=== PATIENT | female | born 1970 | race Caucasian/White ===

== ENCOUNTER 2017-08-18 18:41 | Emergency (ER) | payer BC ==
[~2017-08-18] VITALS: Ht 167.6 cm; Wt 60.2 kg
[~2017-08-18 18:41] MED LIST: AZITTAB PO; DOCU100C31 PO; FERR325T51 PO
[2017-08-18 18:51] VITALS: TEMP 36.8; Ht 167.6 cm; Wt 60.2 kg
[2017-08-18] MEDS ORDERED: SODIUM CHLORIDE 0.9% 1000ML 1,000 ML IV STA (19:04)
[2017-08-18] MEDS ORDERED: KETOROLAC TROMETHAMINE 30 MG/ML VIAL IV STA (19:04)
[2017-08-18] MEDS ORDERED: PROMETHAZINE HCL INJ 12.5 MG in SODIUM CHLORIDE 0.9% 50ML 50 ML IV STA (19:04)
--- NOTE | 2017-08-18 19:11 | EMERGENCY ROOM VISIT NOTE ---
History Report prepared by Mikayla: Camacho Israel Under the Supervision of: Dr. Mo Tran M.D. First contact with patient: 18:54 Chief Complaint: HEADACHE Stated Complaint: MIGRAINE History of Present Illness The patient is a 46 year old female who presents to the Emergency Room with complaints of a constant headache beginning 3 days ago. The patient states that she usually takes Sumatran with relief of her symptoms, but states that it has not helped her for her current symptoms. She notes that her pain feels like one of her typical migraines and is located all along the right side. She reports that she has had migraines for the last few years but has never had to come to the hospital for migraine symptoms. She denies any vision changes, numbness, nausea, vomiting, fever, abdominal pain, ear pain, recent injury, difficulty walking, and chance of . The patient states that she has a history of anemia and does not take any blood thinners. She notes that her mom has a history of cluster headaches. She reports that she is currently taking antibiotics for a sinus infection. She rates her pain as a 9/10. Source of History: patient Onset: 3 days ago Position: head Symptom Intensity: 9/10 Timing: constant Associated Symptoms: No fevers, No nausea, No vomiting, No abdominal pain, No numbness Note: She denies any vision changes and ear pain. She also denies any recent injury, difficulty walking, and chance of . Review of Systems See HPI for pertinent positives & negatives. A total of 10 systems reviewed and were otherwise negative. Past Medical & Surgical Medical Problems: (1) Anemia (2) Bronchitis (3) Sinus infection Old medical records were reviewed. Nurse's notes were reviewed and I agree with. Family History Cluster headache Hypertension Social History Smoking Status: Current Every Day Smoker Alcohol Use: none Marital Status: Housing Status: lives with family Current/Historical Medications Scheduled Amoxicillin (Amoxil), 875 MG PO BID Scheduled PRN Ibuprofen Tab (Advil), 400-600 MG PO Q6H PRN for Headache or Pain Sumatriptan Succinate (Imitrex), 50 MG PO UD PRN for Migraine Allergies Coded Allergies: No Known Allergies (Unverified , 06/26/15) Physical Exam Vital Signs Date Time Temp Pulse Resp B/P (MAP) Pulse Ox O2 Delivery O2 Flow Rate FiO2 08/18/17 23:04 71 18 98/55 96 12/22/17 21:39 74 18 113/75 97 Room Air 08/18/17 21:02 78 18 108/75 96 Room Air 08/18/17 20:07 71 18 111/73 98 Room Air 08/18/17 18:51 36.8 99 20 117/78 99 Room Air Physical Exam General: Non-ill appearing middle age female in no acute distress. HEENT: Normal cephalic atraumatic. Pupils are equal round and reactive to light. Extraocular movements are intact. Oropharynx is pink with moist mucous membranes. No swelling of the mouth lips or tongue. Neck: Supple with a midline trachea. No meningeal signs or stiffness, no JVD or bruits. No Stridor. Chest: Clear to auscultation bilaterally. No wheezes or rhonchi. No increased work of breathing. Heart: regular rate and rhythm. Abdomen: Soft nontender, nondistended without rebound guarding or rigidity. Extremities: No cyanosis clubbing or edema. No calf tenderness or assymetry Spine/Back. Non tender to palpation. No CVA tenderness Skin: Good turgor without rashes. Neurologic exam: Cranial nerves two through 12 are intact. Motor and sensation are intact and symmetrical throughout. Medical Decision & Procedures ER Provider Diagnostic Interpretation: Radiology results as stated below per my review and radiologist interpretation: CT HEAD WITHOUT CONTRAST (CT) FINDINGS: No intra or extra-axial mass lesions are visualized. There is no CT evidence of acute cortical infarction. There is no evidence of midline shift. There is no acute hemorrhage. No calvarial fractures are visualized. There is no evidence of pathologic ventricular dilatation. There is a left maxilla sinus air-fluid level. There is mucosal thickening within the left ethmoid air cells. IMPRESSION: 1. No acute intracranial findings 2. Inflammatory changes within the left maxillary and ethmoid sinuses Electronically signed by: Latrell Preciado M.D. 08/18/2017 10:10 PM Medications Administered Medications (Trade) Dose Ordered Sig/Belkis Route Start Time Stop Time Status Last Admin Dose Admin Ketorolac Tromethamine (Toradol Inj) 30 mg NOW STAT IV 08/18/17 19:04 08/18/17 19:05 DC 08/18/17 19:28 30 MG Promethazine HCl 12.5 mg/Sodium Chloride 50.5 ml @ 204 mls/hr NOW STAT IV 08/18/17 19:04 08/18/17 19:18 DC 08/18/17 19:28 204 MLS/HR Sodium Chloride 1,000 ml @ 999 mls/hr Q1H1M STAT IV 08/18/17 19:04 08/18/17 20:04 DC 08/18/17 19:27 999 MLS/HR Morphine Sulfate (MoRPHine SULFATE INJ) 4 mg NOW STAT IV 08/18/17 20:22 08/18/17 20:25 DC 08/18/17 20:58 4 MG Ondansetron HCl (Zofran Inj) 4 mg NOW STAT IV 08/18/17 20:22 08/18/17 20:25 DC 08/18/17 20:58 4 MG Morphine Sulfate (MoRPHine SULFATE INJ) 2 mg NOW STAT IV 08/18/17 21:45 08/18/17 21:46 DC 08/18/17 21:54 2 MG Oxycodone HCl (Roxicodone Immediate Rel 5MG Home Pack) 1 homepack UD ONCE PO 08/18/17 22:45 08/18/17 22:46 DC 08/18/17 22:59 1 HOMEPACK ED Course 1855: Past medical records reviewed. The patient was evaluated in room C8, and a complete history and physical examination were performed. 1903: Sodium Chloride 1000 ml @ 999 mls/hr IV, Promethazine HCl 12.5mg/Sodium Chloride 50.5 ml @ 204mls/hr, Toradol Inj 30mg IV 1956: I reevaluated and updated the patient. 2020: I reevaluated and updated the patient. She will receive morphine because her headache has not improved. 2021: Zofran Inj 4mg IV, Morphine Sulfate 4mg IV 2050: I reevaluated and updated the patient. She is waiting to get the pain medication. 2144: Morphine Sulfate 2mg IV, Oxycodone HCl 1 homepack PO 2147: I reevaluated and updated the patient. She is concerned that there is something more serious going on and would like a CT. Medical Decision Differential diagnoses include: migraine, tension headache, intracranial process , CVA, and meningitis. This patient comes in as described above. She has a headache consistent with her previous migraines. It is on the right side only this and has been going on for couple days and started is gradually and non-suddenly feels like her previous migraines. It does not respond to medication that she did try. She has a normal neurologic exam and looks well on exam. She has nothing to suggest meningitis or encephalitis. IV access was established and she was given 1 L IV normal saline bolus. She was additionally given Toradol 30 mg IV and Phenergan 12.5 mg IV. She did have the pain and was given morphine 4 mg IV and Zofran 4 mg IV [address]. The morphine did bring the pain down from a 9 to about a 5 . she received additional morphine IV. She was concerned that there could be something else going on and did want to get a CAT scan.I did explain the risks and benefits. The CAT scan was unremarkable except some sinus disease which she is on some antibiotics for. I will give her some OxyIR to go home with her tonight that she can use one or 2 pills every 4-6 hours as needed. She was warned that this could make her drowsy and do not take before drinking, driving, working. She should return ER if: increasing pain, worsening of symptoms, fever or chills, any new problems or concerns. She is happy with plan and discharged to home. Medication Reconcilliation Current Medication List: was personally reviewed by me Blood Pressure Screening Patient's blood pressure: Normal blood pressure Blood pressure disposition: Did not require urgent referral Impression Primary Impression: Migraine Scribe Attestation The scribe's documentation has been prepared under my direction and personally reviewed by me in its entirety. I confirm that the note above accurately reflects all work, treatment, procedures, and medical decision making performed by me. Departure Information Dispostion Home / Self-Care Referrals Yanira Spicer M.D. (PCP) Forms HOME CARE DOCUMENTATION FORM, IMPORTANT VISIT INFORMATION Patient Instructions My [facility] Additional Instructions Rest Drink plenty of fluids Return if: worsening of symptoms, increasing pain, fever, numbness or weakness, any new problems or concerns May use OxyIR 5 mg, 1 pill every 4-6 hours if needed for further headache Follow-up with your doctor in 1-2 days for recheck.
[2017-08-18] MEDS ORDERED: SUMA50TA15 PO (19:14)
[2017-08-18] MEDS ORDERED: AMOX875T3 PO (19:14)
[2017-08-18] MEDS ORDERED: IBUP-103 PO (19:14)
[2017-08-18] MEDS ORDERED: MoRPHine SULFATE 4 MG/ML 1 ML CARP\\VIAL IV STA (20:22)
[2017-08-18] MEDS ORDERED: ONDANSETRON INJ 2 MG/ML 2 ML VIAL IV STA (20:22)
[2017-08-18] MEDS ORDERED: MoRPHine SULFATE 2 MG/ML CARP IV STA (21:45)
--- NOTE | 2017-08-18 22:11 | DIAGNOSTIC IMAGING REPORT ---
CT HEAD WITHOUT CONTRAST (CT) CLINICAL HISTORY: Severe right-sided headache COMPARISON STUDY: No previous studies for comparison. TECHNIQUE: Axial CT of the brain is performed from the vertex to the skull base. IV contrast was not administered for this examination. A dose lowering technique was utilized adhering to the principles of ALARA. CT DOSE: 537.48 mGy.cm FINDINGS: No intra or extra-axial mass lesions are visualized. There is no CT evidence of acute cortical infarction. There is no evidence of midline shift. There is no acute hemorrhage. No calvarial fractures are visualized. There is no evidence of pathologic ventricular dilatation. There is a left maxilla sinus air-fluid level. There is mucosal thickening within the left ethmoid air cells. IMPRESSION: 1. No acute intracranial findings 2. Inflammatory changes within the left maxillary and ethmoid sinuses Electronically signed by: Latrell Preciado M.D. 08/18/2017 10:10 PM Dictated Date/Time: 08/18/2017 10:08 PM
[2017-08-18] MEDS ORDERED: OXYCODONE IR HOME PACK PO ONE (22:45)
[2017-08-18 23:04] VITALS: BP 98/55; PULSE 71; O2SAT 96
== END 2017-08-18 23:07 | disposition home or self-care (01) ==
LOC: C.EDB 18:42 → C.EDC 23:07
DX: G43.909 Migraine, unspecified, not intractable, without status migrainosus (principal); F17.200 Nicotine dependence, unspecified, uncomplicated; D64.9 Anemia, unspecified; Z86.19 Personal history of other infectious and parasitic diseases; Z82.49 Family history of ischemic heart disease and other diseases of the circulatory system